=== PATIENT | male | born 1970 | race Caucasian/White ===

== ENCOUNTER 2016-07-15 10:11 | Emergency (ER) | payer BC ==
[2016-07-15 10:22] VITALS: BP 136/94
--- NOTE | 2016-07-15 10:53 | ER Document Report ---
ED General - General Chief Complaint: Overdose Stated Complaint: MEDICATION OVERDOSE,DEPRESSED TRAVEL OUTSIDE OF THE [place] IN LAST 30 DAYS: No - Related Data Allergies/Adverse Reactions: No Known Allergies Allergy (Verified 07/15/16 10:19) Past Medical History - Social History Smoking Status: Never Smoker Chew tobacco use (# tins/day): No Frequency of alcohol use: Occasional Drug Abuse: None Family History: Reviewed & Not Pertinent Patient has suicidal ideation: Yes Patient has homicidal ideation: No Physical Exam - Vital signs Vitals: Temp Pulse Resp BP Pulse Ox 98.0 F 101 H 16 136/94 H 94 07/15/16 10:20 07/15/16 10:20 07/15/16 10:20 07/15/16 10:20 07/15/16 10:20 Course - Re-evaluation Re-evalutation: 07/15/16 10:52 Patient walked out through the trauma bay doors stating that he is not suicidal , and feels fine. I immediately went out ot look for the patient, he is not on the hospital grounds. I called the number listed and it went ot voicemail. I will place IVC paperwork so that the spacer type bar and segment can find this patient 07/15/16 15:23 Patients house called again, police are still looking for him - Vital Signs Vital signs: Temp Pulse Resp BP Pulse Ox 98.0 F 101 H 16 136/94 H 94 07/15/16 10:20 07/15/16 10:20 07/15/16 10:20 07/15/16 10:20 07/15/16 10:20 Discharge - Discharge Clinical Impression: Depression Qualifiers: Depression Type: unspecified Qualified Code(s): F32.9 - Major depressive disorder, single episode, unspecified Condition: Stable Disposition: ELOPED
== END 2016-07-15 10:50 | disposition left against medical advice (07) ==
LOC: ER 10:11
DX: Z53.9 Procedure and treatment not carried out, unspecified reason (principal); F32.9 Major depressive disorder, single episode, unspecified
CPT/HCPCS: 99281